=== PATIENT | female | born 1950 | race African-American/Black ===

== ENCOUNTER 2019-04-18 20:22 | Inpatient (IN) ==
[2019-04-19] MEDS ORDERED: ONDANSETRON 4 MG/2 ML VIAL IV STA (02:13)
[2019-04-19] MEDS ORDERED: ASPIRIN EC 325 MG TABLET PO STA (02:13)
[2019-04-19 02:55] LABS: Barbiturates Screen,Urine Negative (Negative); Benzodiazepines Screen,Urine Negative (Negative); Cannabinoid Screen,Urine Negative (Negative); Opiate Screen,Urine Negative (Negative); Phencyclidine Screen,Urine Negative (Negative)
[2019-04-19 02:59] LABS: Basophils % 0.3 % (0.0-0.8); Eosinophils % 0.5 % (0.00-10.9); Hematocrit 44.2 VOL% (35.7-47.0); Immature Granulocytes % 0.3 %; Immature Granulocytes Absolute 0.02 #; Lymphocytes # 2.5 10*3/uL (1.4-4.0); Lymphocytes % 33.4 % (21.3-54.2); Mean Corpuscular HGB Conc 28.7 GM/DL (32-36); Mean Corpuscular Volume 74.4 FL (87-102); Mean Platelet Volume 10.3 FL (9.6-12.0); Monocytes % 6.3 % (1.7-12.7); Neutrophils % 59.2 % (38.7-73.9); Platelet Count 253 T/CUMM (130-400); Red Blood Count 5.94 MC/CUMM (3.8-5.5); White Blood Count 7.3 T/CUMM (4-12)
[2019-04-19] MEDS ORDERED: amLODIPine 10 MG TABLET ONE (02:59)
[2019-04-19] MEDS ORDERED: NON-FORMULARY MEDICATION PO STA (03:03)
[2019-04-19 03:06] LABS: INR 1.1; PT Patient Result 11.9 SECS
[2019-04-19 03:21] LABS: Hemoglobin 12.7 GM/DL (12.0-16.0)
[2019-04-19 03:26] LABS: Albumin 3.6 G/DL (3.4-5.0); Bilirubin,Total 0.4 MG/DL (0.2-1.0); Calcium 9.6 MG/DL (8.5-10.1); Osmolality,Calculated 280.3 MOS/KG (273-304); Total Protein 7.4 G/DL (6.4-8.3)
[2019-04-19] MEDS ORDERED: amLODIPine 10 MG TABLET PO ONE (03:30)
[2019-04-19] MEDS ORDERED: ENALAPRIL 10 MG TABLET PO ONE (03:30)
[2019-04-19 03:44] LABS: Apearance,Urine CLEAR (Clear); Bilirubin,Urine Negative (Negative); Blood, Urine Small mg/dL (Negative); Glucose,Urine (UA) Negative (Negative); Ketones,Urine 5 mg/dL (Negative); Mucus,Urine Occasional /LPF (Occasional); Nitrite,Urine Negative (Negative); Protein,Urine Negative; RBC,Urine 2 /HPF (0-4); Squamous Epithelial Cell,Urine Occasional /HPF (0-10); Urine Color Yellow (Yellow); Urine Urobilinogen < 2.0 EU/DL (0.2-1.0); WBC,Urine 6 /HPF (0-6)
[2019-04-19 04:01] LABS: Anisocytosis 1+; Ovalocytes 1+; Platelet Estimate Adequate
[2019-04-19] MEDS ORDERED: ACETAMINOPHEN 325 MG TABLET PO PRN (04:46)
[2019-04-19] MEDS ORDERED: ZALEPLON 5 MG CAPSULE PO PRN (04:46)
[2019-04-19] MEDS ORDERED: guaiFENesin/DM ER 600-30 MG TABLET PO PRN (04:46)
[2019-04-19] MEDS ORDERED: ENOXAPARIN 40 MG/0.4 ML SYRINGE SUBCUT SCH (09:00)
[2019-04-19] MEDS: ASPIRIN 325 MG TABLET PO SCH (09:21)
[2019-04-19] MEDS: PANTOPRAZOLE 40 MG TABLET PO SCH (09:21)
[2019-04-19] MEDS: ONDANSETRON 4 MG/2 ML VIAL IV PRN ×3 (09:28→19:04)
[2019-04-19] MEDS: SODIUM CHLORIDE 0.9% 1,000 ML IV SCH ×2 (11:10→20:52)
[2019-04-19] MEDS: MECLIZINE 12.5 MG TABLET PO PRN (12:58)
[2019-04-19] MEDS: ATORVASTATIN 20 MG TABLET PO SCH (20:51)
[2019-04-20] MEDS: SODIUM CHLORIDE 0.9% 1,000 ML IV SCH ×4 (01:00→20:36)
[2019-04-20] MEDS: MECLIZINE 12.5 MG TABLET PO PRN (06:06)
[2019-04-20 06:24] LABS: Risk Ratio 4.38; Thyroid Stimulating Hormone 3.26 uIU/ml (0.358-3.74); VLDL CHOLESTEROL 20.8 MG/DL
[2019-04-20] MEDS: ASPIRIN 325 MG TABLET PO SCH (10:02)
[2019-04-20] MEDS: PANTOPRAZOLE 40 MG TABLET PO SCH (10:02)
[2019-04-20] MEDS: APIXABAN 2.5 MG TABLET PO SCH ×2 (10:02→20:33)
[2019-04-20] MEDS ORDERED: NITROGLYCERIN SL 0.4 MG TABLET SL PRN (10:55)
[2019-04-20] MEDS: ASPIRIN EC 81 MG TABLET PO SCH (10:56)
[2019-04-20] MEDS: CHOLECALCIFEROL 1,000 UNIT TABLET PO SCH (10:58)
[2019-04-20] MEDS: NAPROXEN 250 MG TABLET PO SCH ×2 (10:58→20:32)
[2019-04-20] MEDS: CALCIUM (CITRATE)/VITAMIN D 200 MG-125 UNIT TABLET PO SCH (10:58)
[2019-04-20] MEDS: NITROGLYCERIN SL 0.4 MG TABLET SL SCH ×2 (11:43→15:02)
[2019-04-20] MEDS: ESCITALOPRAM 10 MG TABLET PO SCH (20:32)
[2019-04-20] MEDS: ATORVASTATIN 20 MG TABLET PO SCH (20:33)
[2019-04-20] MEDS ORDERED: AMLODIPINE BENAZEPRIL PO SCH (21:00)
[2019-04-21] MEDS: SODIUM CHLORIDE 0.9% 1,000 ML IV SCH ×2 (07:00→13:38)
[2019-04-21] MEDS: ASPIRIN EC 81 MG TABLET PO SCH (09:59)
[2019-04-21] MEDS: NAPROXEN 250 MG TABLET PO SCH ×2 (09:59→20:41)
[2019-04-21] MEDS: CALCIUM (CITRATE)/VITAMIN D 200 MG-125 UNIT TABLET PO SCH (09:59)
[2019-04-21] MEDS: PANTOPRAZOLE 40 MG TABLET PO SCH (09:59)
[2019-04-21] MEDS: CHOLECALCIFEROL 1,000 UNIT TABLET PO SCH (09:59)
[2019-04-21] MEDS: APIXABAN 2.5 MG TABLET PO SCH ×2 (09:59→20:41)
[2019-04-21] MEDS: amLODIPine 5 MG TABLET PO SCH (14:53)
[2019-04-21] MEDS: ESCITALOPRAM 10 MG TABLET PO SCH (20:41)
[2019-04-21] MEDS: ATORVASTATIN 40 MG TABLET PO SCH (20:41)
[2019-04-22 05:55] LABS: Calcium 9.1 MG/DL (8.5-10.1)
[2019-04-22 06:07] LABS: Basophils % 0.4 % (0.0-0.8); Eosinophils # 0.3 10*3/uL (0.0-0.87); Eosinophils % 4.8 % (0.00-10.9); Hematocrit 39.3 VOL% (35.7-47.0); Immature Granulocytes % 0.3 %; Immature Granulocytes Absolute 0.02 #; Lymphocytes # 2.6 10*3/uL (1.4-4.0); Lymphocytes % 37.5 % (21.3-54.2); Mean Corpuscular HGB Conc 28.8 GM/DL (32-36); Mean Corpuscular Volume 73.5 FL (87-102); Mean Platelet Volume 10.4 FL (9.6-12.0); Monocytes % 8.1 % (1.7-12.7); Neutrophils % 48.9 % (38.7-73.9); Red Blood Count 5.35 MC/CUMM (3.8-5.5); Red Cell Distribution Width 14.9 % (9.3-17.3); White Blood Count 6.9 T/CUMM (4-12)
[2019-04-22 06:08] LABS: Hemoglobin 11.3 GM/DL (12.0-16.0); Platelet Count 194 T/CUMM (130-400)
[2019-04-22 06:37] LABS: Platelet Estimate Adequate
[2019-04-22] MEDS: APIXABAN 2.5 MG TABLET PO SCH ×2 (08:58→20:33)
[2019-04-22] MEDS: CHOLECALCIFEROL 1,000 UNIT TABLET PO SCH (08:58)
[2019-04-22] MEDS: PANTOPRAZOLE 40 MG TABLET PO SCH (08:58)
[2019-04-22] MEDS: CALCIUM (CITRATE)/VITAMIN D 200 MG-125 UNIT TABLET PO SCH (08:58)
[2019-04-22] MEDS: amLODIPine 5 MG TABLET PO SCH (08:58)
[2019-04-22] MEDS: NAPROXEN 250 MG TABLET PO SCH ×2 (08:58→20:33)
[2019-04-22] MEDS: ASPIRIN EC 81 MG TABLET PO SCH (09:00)
[2019-04-22] MEDS: hydroCHLOROthiazide 12.5 MG CAPSULE PO SCH (13:56)
[2019-04-22] MEDS: ATORVASTATIN 40 MG TABLET PO SCH (20:33)
[2019-04-22] MEDS: ESCITALOPRAM 10 MG TABLET PO SCH (20:33)
[2019-04-23 06:00] LABS: Calcium 9.4 MG/DL (8.5-10.1); Osmolality,Calculated 283.1 MOS/KG (273-304)
[2019-04-23] MEDS: ASPIRIN EC 81 MG TABLET PO SCH (08:46)
[2019-04-23] MEDS: NAPROXEN 250 MG TABLET PO SCH ×2 (08:46→21:41)
[2019-04-23] MEDS: CALCIUM (CITRATE)/VITAMIN D 200 MG-125 UNIT TABLET PO SCH (08:46)
[2019-04-23] MEDS: CHOLECALCIFEROL 1,000 UNIT TABLET PO SCH (08:46)
[2019-04-23] MEDS: PANTOPRAZOLE 40 MG TABLET PO SCH (08:47)
[2019-04-23] MEDS: APIXABAN 2.5 MG TABLET PO SCH ×2 (08:47→21:41)
[2019-04-23] MEDS: amLODIPine 5 MG TABLET PO SCH (08:48)
[2019-04-23] MEDS: hydroCHLOROthiazide 12.5 MG CAPSULE PO SCH (08:48)
[2019-04-23] MEDS: ESCITALOPRAM 10 MG TABLET PO SCH (21:41)
[2019-04-23] MEDS: ATORVASTATIN 40 MG TABLET PO SCH (21:41)
[2019-04-24] MEDS: amLODIPine 5 MG TABLET PO SCH (09:19)
[2019-04-24] MEDS: APIXABAN 2.5 MG TABLET PO SCH (09:19)
[2019-04-24] MEDS: CALCIUM (CITRATE)/VITAMIN D 200 MG-125 UNIT TABLET PO SCH (09:19)
[2019-04-24] MEDS: NAPROXEN 250 MG TABLET PO SCH (09:19)
[2019-04-24] MEDS: CHOLECALCIFEROL 1,000 UNIT TABLET PO SCH (09:19)
[2019-04-24] MEDS: ASPIRIN EC 81 MG TABLET PO SCH (09:19)
[2019-04-24] MEDS: PANTOPRAZOLE 40 MG TABLET PO SCH (09:19)
[2019-04-24 16:41] VITALS: BP 154/61
== END 2019-04-24 17:17 | DRG 66 ==
LOC: N.EDINP 20:22 → N.ED 20:22 → SUATTDRO 04-19 04:46 → N.3E 04-19 05:51 → SUATTDRO 04-19 14:33
PROVIDERS: ADMIT Internal Medicine; ATTEND Internal Medicine